=== PATIENT | male | born 1980 | race Hispanic/Latino ===

== ENCOUNTER 2016-08-20 09:14 | Emergency (ER) | payer OTHER ==
[2016-08-20 09:17] VITALS: BP 138/79; PULSE 67; RESP 19; TEMP 98; O2SAT 99
--- NOTE | 2016-08-20 10:01 | ED PDOC ---
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 With irritation to left eye. Vision now normal was blurry initially.) Onset/Duration Of Symptoms: Hrs (1) Current Symptoms Are (Timing): Better Severity: Moderate Pain Scale Rating Of: 3 Quality: Sharp Wears Contact Lens?: No Associated Symptoms: Pain, FB Sensation Past Medical History Vital Signs: Last Vital Signs Temp 98 F 08/20/16 09:16 Pulse 67 08/20/16 09:16 Resp 19 08/20/16 09:16 BP 138/79 08/20/16 09:16 Pulse Ox 99 08/20/16 09:16 - Medical History PMH: No Chronic Diseases - Family History Family History: States: Unknown Family Hx - Immunization History Hx Tetanus Toxoid Vaccination: No Hx Influenza Vaccination: No Hx Pneumococcal Vaccination: No - Home Medications Home Medications: Ambulatory Orders Medication Instructions Recorded Ibuprofen [Motrin] 600 mg PO Q6H #30 tab 08/02/15 Loratadine [Claritin] 10 mg PO DAILY #20 tab 08/02/15 Tobramycin 0.3% [Tobramycin 5 Ml] 1 drop OP TID #1 bottle 08/20/16 - Allergies Allergies/Adverse Reactions: Allergies Allergy/AdvReac Type Severity Reaction Status Date / Time No Known Allergies Allergy Verified 05/03/15 18:06 Review of Systems ENT: Positive for: Ear Pain Physical Exam - Physical Exam Appears: Positive for: Non-toxic, No Acute Distress Eye Exam: Positive for: EOMI, PERRL, Other (No foreign body noted. Conjunctival and scleral injection OS. Flourescein staining reveals uptake medially left eye 9 oclock. No ring enhancement.) - ECG O2 Sat by Pulse Oximetry: 99 Disposition - Clinical Impression Clinical Impression: Corneal abrasion - Patient ED Disposition Is Patient to be Admitted: No Counseled Patient/Family Regarding: Studies Performed, Diagnosis, Need For Followup, Rx Given - Disposition Referrals: Yair Sands MD [Staff Provider] - Disposition: Routine/Home Disposition Time: 10:02 Condition: FAIR Prescriptions: Tobramycin 0.3% [Tobramycin 5 Ml] 1 drop OP TID #1 bottle Instructions: Corneal Abrasion (ED)
== END 2016-08-20 10:10 | disposition home or self-care (01) ==
LOC: H.ER 09:14
DX: S05.00XA Injury of conjunctiva and corneal abrasion without foreign body, unspecified eye, initial encounter (principal); W22.8XXA Striking against or struck by other objects, initial encounter; Y99.0 Civilian activity done for income or pay